=== PATIENT | female | born 1950 | race Caucasian/White ===

== ENCOUNTER 2018-02-06 10:57 | Emergency (ER) | payer OTHER ==
[~2018-02-06] VITALS: Ht 147.3 cm; Wt 48.0 kg
[~2018-02-06 10:57] MED LIST: DAILY VALUE1 EACH PO; FISH OIL500 MG PO; LO-DOSE ASPIRIN81 M1 PO; MAXALT10 MG PO
[2018-02-06] MEDS ORDERED: NORCO 5/3251 TABLET PO (12:48)
[2018-02-06 13:11] VITALS: BP 157/83
== END 2018-02-06 13:12 | disposition home or self-care (01) ==
LOC: EME 10:57
DX: S32.501A Unspecified fracture of right pubis, initial encounter for closed fracture (principal); W10.9XXA Fall (on) (from) unspecified stairs and steps, initial encounter
CPT/HCPCS: 72100; 72220; 73502; 99281; 99284